=== PATIENT | male | born 1960 | race Caucasian/White ===

== ENCOUNTER 2017-06-14 12:32 | Emergency (ER) | payer BC ==
[~2017-06-14] VITALS: Ht 182.9 cm; Wt 88.5 kg
[2017-06-14] MEDS ORDERED: CLON0.5T PO (12:45)
--- NOTE | 2017-06-14 13:02 | NUR ---
PATIENT IS AWAKE AND ALERT. AWAITING TEST RESULT.
[2017-06-14 13:55] LABS: BASOPHILS % (AUTO) 0.5 % (0.0-2.0); EOSINOPHILS % (AUTO) 0.7 % (0.0-7.0); HEMATOCRIT 43.7 % (36.7-47.1); HEMOGLOBIN 14.4 g/dL (12.5-16.3); LYMPHOCYTES # (AUTO) 2.1 K/uL (20.0-40.0); LYMPHOCYTES % (AUTO) 41.2 % (20.5-51.5); MEAN CORPUSCULAR HEMOGLOBIN 28.9 uug (23.8-33.4); MEAN CORPUSCULAR HGB CONC 33 g/dL (32.5-36.3); MEAN CORPUSCULAR VOLUME 87.6 fL (73.0-96.2); MONOCYTES # (AUTO) 0.4 K/uL (2.0-10.0); MONOCYTES % (AUTO) 6.9 % (0.0-11.0); NEUTROPHILS # (AUTO) 2.6 K/uL (1.8-8.9); NEUTROPHILS % (AUTO) 50.7 % (38.5-71.5); PLATELET COUNT (AUTO) 197 K/uL (152-348); RED BLOOD CELL COUNT(AUTO) 4.99 MIL/uL (4.06-5.63); WHITE BLOOD COUNT (AUTO) 5.1 K/uL (3.6-10.2)
[2017-06-14 14:09] LABS: CREATININE 1.1 mg/dL (0.6-1.3); POTASSIUM 4.7 mmol/L (3.5-5.1)
[2017-06-14 14:15] LABS: BILIRUBIN,DIRECT 0.1 mg/dL (0.0-0.2); BILIRUBIN,TOTAL 0.8 mg/dL (0.2-1.0); TOTAL PROTEIN, SERUM 7.1 g/dL (6.4-8.2)
--- NOTE | 2017-06-14 14:25 | NUR ---
PATIENT IS AWAKE AND ALERT WITH NO NEW COMPLAINTS. AWAITING TEST RESULTS.
--- NOTE | 2017-06-14 15:14 | NUR ---
PATIENT STATES HE HAS TO LEAVE NOW BECAUSE "THE LAWN CARE PROFESSIONAL IS LEAVING AT 4:00". DR ORDAZ NOTIFIED.
--- NOTE | 2017-06-14 15:32 | NUR ---
PATIENT IS LEAVING AGAINST MEDICAL ADVICE. HE SIGNED THE AMA FORM. DC AND FOLLOW UP INSTRUCTIONS GIVEN AND EXPLAINED TO PATIENT.
== END 2017-06-14 15:37 | disposition left against medical advice (07) ==
LOC: ER 12:32
DX: R00.2 Palpitations (principal)
CPT/HCPCS: 36415; 71010; 80048; 80076; 83880; 84443; 84484; 85025; 85730; 93005; 99285; A4663; 70030-TC